=== PATIENT | male | born 1940 | race Caucasian/White ===

== ENCOUNTER 2022-11-11 07:15 | Inpatient (IN) ==
--- NOTE | 2022-09-29 13:49 | PAT Medication Instructions ---
Medication Instructions Date of Service September 29, 2022 Home Medications aspirin 81 mg capsule 81 mg PO QAM cholecalciferol (vitamin D3) 125 mcg (5,000 unit) tablet (Vitamin D3) 125 mcg PO QAM clopidogrel 75 mg tablet 75 mg PO QAM famotidine 20 mg tablet 20 mg PO DAILY PRN acid reflux levetiracetam 500 mg tablet (Keppra) 500 mg PO BID levothyroxine 112 mcg tablet 112 mcg PO QAM rosuvastatin 20 mg tablet 20 mg PO QAM tramadol 50 mg tablet 50 mg PO BID PRN Pain Continue as directed famotidine 20 mg tablet 20 mg PO DAILY PRN acid reflux (if needed) ASK your prescriber and surgeon aspirin 81 mg capsule 81 mg PO QAM clopidogrel 75 mg tablet 75 mg PO QAM DO NOT take the morning of surgery cholecalciferol (vitamin D3) 125 mcg (5,000 unit) tablet (Vitamin D3) 125 mcg PO QAM Take morning of surgery With a small sip of water, OTHERWISE NOTHING TO EAT OR DRINK AFTER MIDNIGHT: levetiracetam 500 mg tablet (Keppra) 500 mg PO BID levothyroxine 112 mcg tablet 112 mcg PO QAM rosuvastatin 20 mg tablet 20 mg PO QAM tramadol 50 mg tablet 50 mg PO BID PRN Pain (if needed) Take evening before surgery levetiracetam 500 mg tablet (Keppra) 500 mg PO BID tramadol 50 mg tablet 50 mg PO BID PRN Pain (if needed) Other Notes If you have any questions please call us at [phone] or [phone] or or [phone]
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
[~2022-11-11 07:15] MED LIST: 300mg Preop IV SCH; 600mg Preop IV SCH; LR 15ML/HR IV SCH
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
[2022-11-11] MEDS ORDERED: ePHEDrine sulfate 50 MG/ML AMP IV PRN (08:07)
[2022-11-11] MEDS ORDERED: ATROPINE SULFATE 0.1 MG/ML 10ML SYR IV PRN (08:07)
[2022-11-11] MEDS ORDERED: fentaNYL citrate PF 100 MCG/2 ML VIAL IV PRN (08:07)
[2022-11-11] MEDS ORDERED: ONDANSETRON INJ 2 MG/ML 2 ML VIAL IV PRN ×2 (08:07→13:41)
[2022-11-11] MEDS ORDERED: ASPIRIN 81 MG ECTAB PO ONE (08:38)
[2022-11-11] MEDS ORDERED: GELATIN SPONGE SZ 100 ONE (09:12)
[2022-11-11] MEDS ORDERED: THROMBIN FOR SOLN 20000 UNIT KIT ONE (09:12)
[2022-11-11] MEDS ORDERED: BUPIVACAINE/EPINEPHRINE 0.5% MPF 1:200,000 30 ML VIAL ONE (09:12)
[2022-11-11] MEDS ORDERED: ceFAZolin 330 MG/ML 1 GM VIAL ONE (09:12)
[2022-11-11] MEDS ORDERED: LIDOCAINE 2% 2 ML VIAL/AMP(20MG/ML) INFIL ONE (09:26)
[2022-11-11] MEDS ORDERED: PROPOFOL IV EMULSION 10 MG/ML 20 ML VIAL IV ONE (10:04)
[2022-11-11] MEDS ORDERED: DEXAMETHASONE SOD INJ 4 MG/ML VIAL ONE (10:04)
[2022-11-11] MEDS ORDERED: fentaNYL citrate PF 100 MCG/2 ML VIAL ONE ×2 (10:04→10:42)
[2022-11-11] MEDS ORDERED: GLYCOPYRROLATE 0.2 MG/ML VIAL ONE (10:04)
[2022-11-11] MEDS ORDERED: HEPARIN SOD (PORCINE) 1000 UNIT/ML ONE (10:38)
[2022-11-11] MEDS ORDERED: PROTAMINE SULFATE 10 MG/ML 5 ML VIAL IV ONE (11:09)
[2022-11-11] MEDS ORDERED: ONDANSETRON INJ 2 MG/ML 2 ML VIAL ONE (11:13)
[2022-11-11] MEDS ORDERED: SUGAMMADEX SODIUM 200 MG/2 ML VIAL IV ONE (11:13)
--- NOTE | 2022-11-11 11:42 | Procedure Note ---
Angiogram Post Procedure Fluoroscopy Time (minutes): 2 Radiation (mGy): 27 Contrast: 15 Post Operative Report Pre & Post Diagnosis Operation Date: 11/11/22 09:20 Pre-Op Diagnosis: Left Internal Carotid Artery Stenosis Post-Op Diagnosis: Left Internal Carotid Artery Stenosis I identified the patient and participated in the time-out.: Yes Procedure Operation Date: 11/11/22 09:20 Actual Procedures p Left Transcarotid Artery Revascularization(Left), ultrasound localization of right common femoral vein - Jonathan Pinon MD Surgeon Jonathan Pinon MD Section Leader Screen Printing none Estimated Blood Loss 10 Findings Consistent with Post-Op Diagnosis Specimens none Anesthesia Type General Complications none Disposition Accompanied Patient To Recovery: No Disposition: Recovery Room Indications This is an 81-year-old male who we have been following for carotid disease in the past. He had worsening of his carotid stenosis. CT angio was greater than 80%. Endarterectomy versus TCAR was recommended. He elected to go ahead with TCAR procedure. I have discussed the risks options and benefits of the procedure with the cheryl ent. The patient understands the risks options and benefits and agrees to the procedure. Description of Procedure The patient was taken to the operating room and placed in supine position. After general anesthesia was accomplished the groins and left side of the neck and chest were prepped and draped in a sterile manner. Timeout was performed and the patient was identified. A transverse incision was made just above the clavicle between the heads of the sternocleidomastoid. This is carried down to where the common carotid artery was identified. It was isolated. It was slung with umbilical tape. Next the U stitch was placed in the common carotid artery with a 5-0 Prolene suture. Patient was given 9000 heparin at that time. Ultrasound was then used to localize the right common femoral vein. The vein was patent and compressed easily. Under ultrasound guidance the right common femoral vein was punctured and the venous sheath was inserted. This was aspirated and flushed with heparinized saline. ACT at that time was 293. Using micropuncture technique the common carotid artery was punctured. The micro sheath was inserted to 3 cm. Injection was then done showing the bifurcation. There was a significant lesion seen at the just above the origin of the internal carotid artery on the left side. We then inserted the J-wire left and short of the lesion. The micro sheath was removed and the TCAR sheath was inserted. Once it was in place and held against the artery it was sutured to the chest wall and the incision edge. We then flushed the tubing appropriately. The venous return to was clamped onto the TCAR sheath. It was flushed through and then attached to the venous inflow sheath in the left groin. Sheath was checked for flow. The saline cleared nicely. The common carotid artery was then clamped using a Smooth tourniquet. Flow reversal was instituted. We inserted a 4.5 x 25 balloon backloaded on the wire. The wire was passed through the lesion into the petrous portion of the internal carotid. The 4.5 balloon was then advanced to the lesion. Lesion was then predilated with a four-point mm balloon. Balloon was removed. We then inserted the 9 x 40 stent. This was deployed across the lesion without difficulty. The catheter was removed. The carotid was allowed to go 2 minutes with flow reversal. Completion angiogram was done at that time which showed a widely patent carotid stent. At that point the common carotid artery was unclamped. The venous return tubing was clamped and removed from the TCAR sheath. The blood was allowed to flow back into the venous system. Once this was completed the sheath was pulled from the groin and pressure was applied. The TCAR sheath was then removed and the 5-0 Prolene suture securely tied. Hemostasis was noted of the puncture site. Wound was irrigated with saline solution. Adequate hemostasis was obtained of the wound. Once this was noted the wound was closed in usual fashion using a 3-0 Vicryl suture for the subcutaneous layer and a 4-0 subcuticular Vicryl suture for the skin edges. Dermabond was used for dressing.The patient left the operation room in satisfactory condition and tolerated the procedure well. All needle and sponge counts were correct at the end of the procedure I attest to the content of the Intraoperative Record and any orders documented therein. Any exceptions are noted below.
[2022-11-11] MEDS ORDERED: ROCURONIUM BROMIDE 10 MG/ML 5 ML VIAL IV ONE (11:51)
[2022-11-11] MEDS ORDERED: VISIPAQUE IV PRN (11:52)
--- NOTE | 2022-11-11 13:38 | Anesthesiology Progress Note ---
Date of Service November 11, 2022 Anesthesia Post Procedure Vital Signs Vital Signs: Temp Pulse Pulse Resp BP BP Pulse Ox 11/11/22 12:45 66 11 L 113/83 98 11/11/22 12:35 64 12 119/71 98 11/11/22 12:25 97.3 F L 67 12 127/79 96 11/11/22 12:15 69 12 119/73 99 11/11/22 12:05 80 12 122/90 97 11/11/22 11:55 80 12 120/79 96 11/11/22 11:45 96.8 F L 80 19 134/87 97 11/11/22 07:55 97.9 F 73 20 144/93 H 138/92 98 O2 Del Method O2 Flow Rate 11/11/22 12:45 Nasal Cannula 2 11/11/22 12:35 Nasal Cannula 2 11/11/22 12:25 Nasal Cannula 2 11/11/22 12:15 Nasal Cannula 2 11/11/22 12:05 Nasal Cannula 2 11/11/22 11:55 Nasal Cannula 3 11/11/22 11:45 Nasal Cannula 3 11/11/22 07:55 Room Air Transfer of Care Handoff Completed per policy Notes Mental Status: alert / awake / arousable and participated in evaluation Patient Amnestic to Procedure: Yes Nausea / Vomiting: adequately controlled Pain: adequately controlled Airway Patency, RR, SpO2: stable & adequate BP & HR: stable & adequate Hydration State: stable & adequate Anesthetic Complications: no major complications apparent and Pt Satisfied with anesthetic care
[2022-11-11] MEDS ORDERED: FAMOTIDINE 20 MG TAB PO PRN (13:41)
[2022-11-11] MEDS ORDERED: oxyCODONE/ACETAMINOPHEN 5mg/325mg TAB PO PRN (13:41)
[2022-11-11] MEDS ORDERED: traMADol HCL 50 MG TABLET PO PRN (13:41)
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
[2022-11-11] MEDS: LACTATED RINGER'S 1,000 ML IV SCH ×2 (14:43→19:21)
[2022-11-11] MEDS: CLINDAMYCIN/D5W 600 MG/50 ML BAG IV SCH (18:13)
[2022-11-11] MEDS: levETIRAcetam 500 MG TAB PO SCH (21:37)
[2022-11-12] MEDS: CLINDAMYCIN/D5W 600 MG/50 ML BAG IV SCH (03:08)
[2022-11-12] MEDS ORDERED: LEVOTHYROXINE SODIUM 112 MCG TABLET PO SCH (06:30)
[2022-11-12] MEDS: LACTATED RINGER'S 1,000 ML IV SCH (06:38)
[2022-11-12 08:46] LABS: Basophils # (auto) 0.01 K/uL (0-0.2); Basophils % (auto) 0.1 %; Hematocrit (blood only) 39.9 % (42.0-52.0); Hemoglobin 13.7 g/dl (14.0-18.0); Immature Granulocytes # (auto) 0.05 K/uL (0.01-0.20); Immature Granulocytes % (auto) 0.5 %; Mean Corpuscular Hemoglobin 28.2 pg (25.0-34.0); Mean Corpuscular Hgb Conc 34.3 g/dL (32.0-36.0); Mean Corpuscular Volume 82.1 fL (80.0-100.0); Mean Platelet Volume 8.8 fL (9.4-12.4); Monocytes # (auto) 0.46 K/uL (0.11-0.59); Monocytes % (auto) 4.2 %; Neutrophils # (auto) 9.42 K/uL (1.40-6.50); Neutrophils % (auto) 85.2 %; Platelet Count 175 K/uL (130-400); RDW Coefficient of Variation 12.4 % (11.5-14.5); RDW Standard Deviation 37.2 fL (36.4-46.3); Red Blood Count 4.86 M/uL (4.70-6.10); White Blood Count 11.04 K/ul (4.8-10.8)
[2022-11-12] MEDS ORDERED: CLOPIDOGREL BISULFATE 75 MG TAB PO SCH (09:00)
[2022-11-12] MEDS ORDERED: ROSUVASTATIN CALCIUM 20 MG TAB PO SCH (09:00)
[2022-11-12] MEDS ORDERED: ASPIRIN 81 MG ECTAB PO SCH (09:00)
[2022-11-12] MEDS ORDERED: CHOLECALCIFEROL 5,000 UNITS 125 MCG TAB PO SCH (09:00)
--- NOTE | 2022-11-12 09:10 | Critical Care Progress Note ---
Date of Service November 12, 2022 Assessment & Plan (1) S/P vascular surgery: (2) Seizure disorder: (3) Hypertension: Plan Reason Critically Ill: 81-year-old male status post LEFT-sided TCAR admitted to the ICU status post vascular intervention. NEURO - * CAM ICU: NEGATIVE * Seizures: * Continue Keppra. * Frequent neuro checks per unit policy status post TCAR procedure. CARDIAC/VASCULAR - * Hypertension/hyperlipidemia/post aortic valve replacement: * Continue with home antihypertensives as tolerated. * BP post-operative goals per vascular. * Monitor on telemetry. RESPIRATORY - * No history of respiratory disease. GI/NUTRITION - * Progress diet as tolerated. RENAL/LYTES - * No history of renal disease. * IVF: lR at 125mL/hr postoperatively. Consider discontinuing when patient tolerating PO well. - * Padgett in place - Strict I&Os. ENDO - * No h/o DM or Thyroid Dz * BSGs per unit protocol. ISS --> gtt per unit policy. HEME - * Stable H&H. * Monitor for signs/symptoms of bleeding status post vascular intervention. ID - * No concerns of infectious contribution. LINES/IV ACCESS - * PIVs x2 * LEFT Radial arterial line DVT PROPHYLAXIS - * Hold on chemoprophylaxis s/p vascular intervention. * SCDs Thank you for allowing us to participate in the care of this patient. Please refer to my attending physician's documentation for any further recommendations. Disposition per vascular surgery team. Admission and Anticipated Discharge Date Admission Date: November 11, 2022 Supervising Physician Co-Signing Physician Notes Patient seen and examined. No acute events overnight post TCAR. Neurologically intact. Plan for DC home per primary team. Subjective Patient was seen and evaluated bedside. He had a poor night sleep, but equates it to sleep in a bed which she is not used to. Otherwise, he offers no complaints at this time and is anticipating to be discharged home soon. Review of Systems Review of Systems: A complete 10 point review of systems was reviewed with the patient with pertinent positives and negatives as per history of present illness. All else were negative. Physical Exam Physical Exam: VITAL SIGNS - Vital signs and nursing notes were reviewed. GENERAL - 81-year-old male appearing his stated age who is in no acute distress. Communicates well with provider and answers questions appropriately. SKIN -LEFT-sided chest TCAR site clean, dry, and intact. NECK - Neck with FROM. LEFT sided TCAR surgical site clean, dry, and intact. No nuchal rigidity. LUNGS - Chest wall symmetric without accessory muscle use, intercostals retractions, or central cyanosis. Normal vesicular breath sounds CTA B/L. No wheezes, rales, or rhonchi appreciated. CARDIAC - RRR with S1/S2. No murmur, rubs, or gallops appreciated. EXTREMITIES - No clubbing or peripheral cyanosis. No pretibial edema present. +3/5 radial and dorsalis pedis pulses palpated throughout. +5/5 strength noted in UE/LE bilaterally. NEUROLOGIC - Cranial nerves II through XII grossly intact. Sensory intact to light touch throughout. PSYCH - A&Ox3 and cooperates fully with examiner. Pt is very pleasant and interacts well with examiner. Results & Data Results & Data Vital Signs (Past 12 Hours) Vital Signs Pulse Resp BP Pulse Ox 11/12/22 08:00 79 13 92 11/12/22 08:00 98/70 L 11/12/22 08:00 75 115/60 11/12/22 08:00 73 11/12/22 07:00 74 13 92 11/12/22 07:00 107/68 11/12/22 06:00 68 10 L 93 11/12/22 06:00 109/70 11/12/22 05:00 66 7 L 93 11/12/22 05:00 110/69 11/12/22 04:00 76 11 L 92 11/12/22 04:00 112/68 11/12/22 03:00 72 14 90 11/12/22 03:00 95/69 L 11/12/22 02:00 88 13 91 11/12/22 02:00 107/66 11/12/22 01:00 64 10 L 95 11/12/22 01:00 114/68 11/12/22 00:00 68 10 L 95 11/12/22 00:00 106/69 11/11/22 23:00 66 15 94 11/11/22 22:00 84 22 94 11/11/22 22:00 132/86 11/12/22 00:00 79 120/61 Coding Level of Care Code 82184 SUB INP/OBS CARE 2/35MIN Diagnoses S/P vascular surgery Z98.890 Seizure disorder G40.909 Hypertension I10
[2022-11-12 09:37] LABS: BUN Creatinine Ratio 14.7 (10-20); Creatinine Clr Calc Pharmacy 63.7 ml/min; Est GFR (African American) 80.1 ml/min; Est GFR (Non-African American) 69.1 ml/min; Potassium 4.5 mmol/L (3.5-5.1)
[2022-11-12] MEDS: levETIRAcetam 500 MG TAB PO SCH (09:48)
--- NOTE | 2022-11-12 14:00 | Surgery Progress Note ---
Date of Service November 12, 2022 Assessment & Plan Admission and Anticipated Discharge Date Admission Date: November 11, 2022 Subjective Patient without complaint. No swallowing or speech problems Physical Exam Constitutional: WD/WN, vitals as above Neck: trachea midline Respiratory: normal respiratory effort, lungs clear to auscultation Cardiovascular: RRR, no murmur, no edema Skin: + incision (dry and clean) Neurologic: CN's II-XI intact bilaterally and moves all extremities Results & Data Vital Signs (Past 12 Hours) Vital Signs Temp Pulse Pulse Resp BP BP Pulse Ox 11/12/22 13:38 36.6 C 66 17 113/83 95 11/12/22 08:00 36.6 C 11/12/22 13:00 72 17 106/73 95 11/12/22 12:00 67 16 92 11/12/22 12:00 97/64 L 11/12/22 11:01 71 15 94 11/12/22 11:01 119/77 11/12/22 11:00 67 21 95 11/12/22 10:00 73 13 90 11/12/22 10:00 102/67 11/12/22 09:00 76 18 93 11/12/22 09:00 123/75 11/12/22 08:00 79 13 92 11/12/22 08:00 98/70 L 11/12/22 08:00 75 115/60 11/12/22 08:00 73 11/12/22 07:00 74 13 92 11/12/22 07:00 107/68 11/12/22 06:00 68 10 L 93 11/12/22 06:00 109/70 11/12/22 05:00 66 7 L 93 11/12/22 05:00 110/69 11/12/22 04:00 76 11 L 92 11/12/22 04:00 112/68 11/12/22 03:00 72 14 90 11/12/22 03:00 95/69 L 11/12/22 02:00 88 13 91 11/12/22 02:00 107/66
--- NOTE | 2022-11-12 14:29 | Surgery Progress Note ---
Date of Service November 12, 2022 Assessment & Plan (1) Internal carotid artery stent present: Plan: This patient is postoperative day 1 from TCAR. He is doing extremely well without any complications. He will be discharged to self-care at home. Admission and Anticipated Discharge Date Admission Date: November 11, 2022 Subjective Patient without complaints. He has no problems swallowing. He has no focal deficit complaints. He denies hoarseness. Physical Exam Constitutional: WD/WN, vitals as above Neck: trachea midline Respiratory: normal respiratory effort; no respiratory distress Cardiovascular: Rate/Rhythm: regular rate and regular rhythm Skin: + incision (Dry and clean) Neurologic: CN's II-XI intact bilaterally and moves all extremities Psychiatric: Orientation: alert and oriented x 3 Results & Data Vital Signs (Past 12 Hours) Vital Signs Temp Pulse Pulse Resp BP BP Pulse Ox 11/12/22 13:38 36.6 C 66 17 113/83 95 11/12/22 08:00 36.6 C 11/12/22 13:00 72 17 106/73 95 11/12/22 12:00 67 16 92 11/12/22 12:00 97/64 L 11/12/22 11:01 71 15 94 11/12/22 11:01 119/77 11/12/22 11:00 67 21 95 11/12/22 10:00 73 13 90 11/12/22 10:00 102/67 11/12/22 09:00 76 18 93 11/12/22 09:00 123/75 11/12/22 08:00 79 13 92 11/12/22 08:00 98/70 L 11/12/22 08:00 75 115/60 11/12/22 08:00 73 11/12/22 07:00 74 13 92 11/12/22 07:00 107/68 11/12/22 06:00 68 10 L 93 11/12/22 06:00 109/70 11/12/22 05:00 66 7 L 93 11/12/22 05:00 110/69 11/12/22 04:00 76 11 L 92 11/12/22 04:00 112/68 11/12/22 03:00 72 14 90 11/12/22 03:00 95/69 L
--- NOTE | 2022-11-12 14:29 | Discharge Summary ---
Date of Service November 12, 2022 Admission HPI Per Admitting Provider Reason for Consultation Bilateral carotid stenosis significant on the left History of Present Illness I had the pleasure of seeing Jonathan today for evaluation of his carotid disease as you know he is a 81-year-old gentleman who has been followed for carotid disease in the past. He had a CT angiogram recently which showed greater than 80% narrowing of his left internal carotid artery. He has no complaints of amaurosis fugax or TIAs. He does have a history of syncope and seizure disorder. He also has a history of an aortic valve in the past as well as a pacemaker. He denies any claudication symptoms. He is on aspirin 81 mg a day as well as a statin. Review of Systems 10 systems were reviewed. Positive findings included occasional chest pain and irregular heartbeat, cough, occasional wheezing, shortness of breath, nausea heartburn loss of appetite constipation diarrhea and fatigue. Rest of positive findings are per the HPI. Physical Exam Vitals & Measurements HR: 70 (Monitored) BP: 100/64 SpO2: 97% WT: 91.900 kg (Dosing) WT: 91.9 kg Input and Output - Last 24 hours (Last 8 hours) No I/O Data Found: Patient is awake alert and oriented x3. His blood pressure is 100/64 on the left 114/70 on the right. His radials are +2 on bilaterally. I cannot appreciate carotid bruits. His lungs are clear his heart had a regular rate and rhythm. Abdominal seems benign no abnormal dilatation of the aorta is appreciated. Neurologic exam is intact. His femorals and pedal pulses are all +2 bilaterally. He has normal capillary refill. Diagnostic Results He did have his CT angiogram which showed a 80 to 85% narrowing of his left internal carotid artery. Assessment/Plan Carotid stenosis, bilateral At this time we recommended intervention of his left carotid. We went over the risks options and benefits of endarterectomy versus a TCAR procedure. He agreed to go ahead with the TCAR of the left carotid. We will need to repeat the CT angiogram to get some more precise measurements of the carotid lesion for the TCAR procedure. We also started him on Plavix being that he needs to be on 81 mg of aspirin, Plavix, and a statin for this procedure and to continue it for the 1 year after the procedure. We will keep you informed as to his progress. Thank you very much for letting us participate in the care of this patient. Sincerely, Randi Pinon MD Admission Exam Per Admitting Provider Patient is awake alert and oriented x3. His blood pressure is 100/64 on the left 114/70 on the right. His radials are +2 on bilaterally. I cannot appreciate carotid bruits. His lungs are clear his heart had a regular rate and rhythm. Abdominal seems benign no abnormal dilatation of the aorta is appreciated. Neurologic exam is intact. His femorals and pedal pulses are all +2 bilaterally. He has normal capillary refill. Principal Diagnosis Left internal carotid artery stenosis Discharge Exam Constitutional WD/WN, vitals as above Neck trachea midline Respiratory normal respiratory effort, lungs clear to auscultation normal respiratory effort; no respiratory distress Cardiovascular RRR, no murmur, no edema Rate/Rhythm: regular rate and regular rhythm Skin + incision (Dry and clean) Neurologic CN's II-XI intact bilaterally and moves all extremities Psychiatric Orientation: alert and oriented x 3 Discharge Data Allergies Allergy/AdvReac Type Severity Reaction Status Date / Time Penicillins Allergy Unknown Unknown Verified 11/11/22 07:47 Sulfa (Sulfonamide Allergy Unknown Body Verified 11/11/22 07:47 Antibiotics) swelling tetanus immune globulin Allergy Unknown Unknown Verified 11/11/22 07:47 hydrocodone AdvReac Unknown Nausea Verified 11/11/22 07:47 Consultations 11/11/22 13:41 Consult Scroll Shear Operator Routine Procedures Performed Operation Date: 11/11/22 09:20 Actual Procedures p Left Transcarotid Artery Revascularization, ultrasound localization of right common femoral vein(Left) - Jonathan Pinon MD Ordered Studies 11/11/22 07:14 EV angio carotid cerv LT Routine Hospital Course (1) Internal carotid artery stent present: This patient is postoperative day 1 from TCAR. He is doing extremely well without any complications. He will be discharged to self-care at home. Total Time Total Time Spent Total Time Spent (In Minutes): 0 Discharge Plan Discharge Items Patient Disposition: Home - Self-Care Reason For Visit: Left Internal Carotid Artery Stenosis Discharge Diagnosis: carotid stenosis, post left carotid stenting Activity: Per Instructions section Non-emergency contact: Surgeon Call non-emergency contact if: your temperature is above 101.5, your wound has increased redness, your wound has increased drainage and your wound pain has increased Follow-up/Referrals: PCP,NO [Primary Care Provider] - Diet: Heart Healthy [facility] Attending Provider Instructions: SPECIAL CARE INSTRUCTIONS: Medications: * Continue to take Aspirin, plavix and statin as directed. Do not stop for 30 days post procedure. If any of these need to be stopped within the first year, please notify my office. Incision Care: * You may shower, but do not rub incision. You may let the warm soapy water run over it. Be sure to dry the incision well after bathing. * Do not shave directly over the incision until it is healed. * DO NOT IMMERSE THE INCISION IN A TUB/POOL/etc. UNTIL HEALED. Restrictions: * Do not drive for at least one week or if you are still taking any narcotic pain medication. * Do not lift anything heavier than a gallon of milk for one week after going home. Possible Complications: * Numbness - It is normal to have some numbness around the incision. Numbness can extend beyond the incision to areas of the neck, ear and face. The numbness is due to bruising of nerves during the surgery and will gradually improve over a period of months. * Hoarseness/Difficulty Speaking and Swallowing - The bruising of nerves in the neck can also cause a hoarse voice, difficulty speaking or swallowing. This may improve over time, HOWEVER, if it continues for more than a few days please contact our office ([phone]). * Excessive Swelling - There will be some swelling immediately after surgery which usually resolves within one week. If you notice that the swelling is getting worse, notify your surgeon ([phone]). * Drainage/Bleeding - If there is any drainage or bleeding, it should be a very small amount (less than a teaspoon per day). If you have excessive bleeding or drainage from the incision, call your surgeon ([phone]) right away. ACTIVATION OF EMERGENCY MEDICAL SYSTEM: Call 911, immediately, if you experience any of the following: Warning Signs and Symptoms of Stroke: * Sudden numbness or weakness of the face, arm or leg, especially on one side of the body * Sudden confusion, trouble speaking or understanding * Sudden trouble seeing in one or both eyes * Sudden trouble walking, dizziness, loss of balance or coordination * Sudden severe headache with no cause Do not delay calling 911 if you experience any warning signs or symptoms of a stroke. Delay in seeking medical attention may affect what treatments can be given to you. Risk Factors for Stroke: You can reduce your chances of stroke by working with your medical provider to adopt a healthy lifestyle. Some specific ways to lower your chance of stroke are: * If you are a smoker, now is the time to stop smoking cigarettes * If you are diabetic, improve the control of your blood sugars * Avoid excessive amounts of alcohol * Control high blood pressure * Lose weight if you are overweight * Be sure to lead an active lifestyle * Eat a healthy diet low in salt, cholesterol and fat You should know about other risk factors for stroke that you are unable to control. These include: * Age 55 years or older * Male gender * Certain racial groups: , or / * Family History of Stroke, Mini stroke or Heart Attack * Sickle Cell Disease You will be receiving a call from the Vascular Surgery Nurse after you are discharged. FOLLOW UP VISIT: It is important for you to keep your follow up appointments with your medical provider. Keep any scheduled doctor appointments. Pending Studies at Discharge: No Stand-Alone Forms: [facility], Smoking Cessation Medications and DC Order Prescriptions: Continued levetiracetam [Keppra] 500 mg Tablet 500 mg PO BID clopidogrel 75 mg Tablet 75 mg PO QAM tramadol 50 mg Tablet 50 mg PO BID PRN (Reason: Pain) famotidine 20 mg Tablet 20 mg PO DAILY PRN (Reason: acid reflux) levothyroxine 112 mcg Tablet 112 mcg PO QAM rosuvastatin 20 mg Tablet 20 mg PO QAM cholecalciferol (vitamin D3) [Vitamin D3] 125 mcg (5,000 unit) Tablet 125 mcg PO QAM aspirin 81 mg Capsule 81 mg PO QAM Discharge Orders: Discharge Order (Routine); Ordered 11/12/22 Ordered By: Jonathan Pinon Admission Data Admit Date/Time: 11/11/22 08:28 Attending Provider: Jonathan Pinon Admit Provider: Jonathan Pinon Primary Care Provider: PCP,NO Other Providers: Derrick Akins ; Lewis Pepper ; Reginaldo Campos ; Gucci Emery ; Neptali Langston ; Saqib Sher ; Addison Costello ; Raj Vargas ; Tamika Maddox ; Jane Eubanks ; Steve Cobb Other Interventions: Discharge Summary Assessment (RN) Last Done: 11/12/22 13:38
== END 2022-11-12 14:15 | disposition home or self-care (01) | DRG 36 ==
LOC: ASU 07:15 → 1E 08:28
PROC: EV.TCAR (2022-11-11 09:20)